=== PATIENT | female | born 1975 | race Caucasian/White ===

== ENCOUNTER 2025-02-04 06:27 | Outpatient (OUT) | payer BC, SELFPAY ==
[2025-02-04 06:49] LABS: Basophils Absolute Auto 0.1 10^3/uL (0.0-0.1); Basophils Percent Auto 0.9 % (0.2-2.0); Eosinophils Absolute Auto 0.1 10^3/uL (0.0-0.7); Eosinophils Percent Auto 0.8 % (0.9-7.0); Hemoglobin 14.6 g/dL (12.0-16.0); Immature Granulocytes Abs Auto 0.02 10^3/uL (0.00-0.03); Immature Granulocytes Pct Auto 0.3 % (0.0-0.5); Lymphocytes Absolute Auto 2.8 10^3/uL (1.2-3.8); Lymphocytes Percent Auto 36.9 % (20.5-60.0); Mean Corpuscular Hemoglobin 30.2 pg (26.7-34.0); Mean Corpuscular Volume 88.8 fL (81.0-99.0); Mean Platelet Volume 10.5 fL (9.5-13.5); Monocytes Absolute Auto 0.6 10^3/uL (0.3-0.8); Monocytes Percent Auto 7.5 % (1.7-12.0); Neutrophils Percent Auto 53.6 % (43.0-75.0); Platelet Count 213 10^3/uL (150-450); Red Blood Count 4.84 10^6/uL (4.20-5.40); Red Cell Distribution Width 11.9 % (11.0-15.0); White Blood Count 7.5 10^3/uL (4.0-11.0)
[2025-02-04 07:19] LABS: Alanine Aminotransferase 20 U/L (14-59); Albumin Globulin Ratio 1.4; Albumin Level 4.2 g/dL (3.4-5.0); Alkaline Phosphatase 110 U/L (46-116); Anion Gap 15.5; Aspartate Amino Transferase 10 U/L (15-37); BUN Creatinine Ratio 28.8; Bilirubin Total 0.6 mg/dL (0.2-1.0); Chloride 95 mmol/L (98-107); Chol HDL Ratio 6.5; Cholesterol 221 mg/dL (<=200); Estimated GFR (African America >60 (>=60 mL/min/1.73m^2); Estimated GFR (Non-African Ame >60 (>=60 mL/min/1.73m^2); Globulin 3.1 g/dL; Glucose 311 mg/dL (74-106); HDL Cholesterol 34 mg/dL (40-60); Potassium 3.5 mmol/L (3.5-5.1); Sodium 134 mmol/L (136-145); Total Protein 7.3 g/dL (6.4-8.2); Triglycerides 310 mg/dL (<=150)
== END 2025-02-04 06:28 | disposition home or self-care (01) ==
LOC: LAB 06:31
PROVIDERS: PCP Family Medicine; Visit Provider Family Medicine
DX: R53.82 Chronic fatigue, unspecified (principal); Z13.220 Encounter for screening for lipoid disorders; R63.4 Abnormal weight loss; G47.00 Insomnia, unspecified; R53.83 Other fatigue
CPT/HCPCS: 36415; 80053; 80061; 84443; 85025

== ENCOUNTER 2025-07-28 06:32 | Outpatient (OUT) | payer BC, SELFPAY ==
--- OUTSIDE RECORDS SUMMARY | 2025-07-27 03:45 | XMS_ITS ---
Author Organization [facility] [place] Address [address] [place] [address] Care Team Providers Care Manager Room Name Role Phone ArleneLoree okeefe Primary Care Provider [phone] Tristan Montenegro Unavailable [phone] Allergies No Known Allergies Results Component Value Reference Range Notes GLUCOSE - IN OFFICE (Not yet reviewed by provider) Interpretation: Performing Lab: Notes/Report: Glucose 379 74 - 106 MG/DL Reason For Referral Diagnosis 1 Diabetes (E11.9) Referral Organization [facility] Referring Provider First Name Tristan Referring Provider Last Name Lan Referring Provider [facility] Provider Ken Bo Referred Provider Specialty Endocrinolog y Referral Priority Routine REASON FOR VISIT sick, sore throat, patient states feels like has marble in throat , Started Friday, worsening last night, Was seeing a different PCP in [place], Dr Jimmie Naqvi- was told Diabetic but not on any meds- patient said weight loss and muscle tone, Would like to see Dr Bo- glucose done today in office Medications Medication SIG (Take, Route, Frequency, Duration) Notes Start Date End Date Status Amoxicillin-Pot Clavulanate 875-125 MG 1 tablet Orally every 12 hrs; Duration: 10 days 5ActiveGlimepiride 2 MG1 tablet with breakfast or the first main meal of the day Orally Once a day; Duration: 30 days5ActivemetFORMIN HCl 500 MG1 tablet with a meal Orally bid; Duration: 30 days5Active Social History Tobacco Use: Social History Observation Description Date Details (start date - stop date) Former Smoker 07/25/1994 - 07/29/2013 Tobacco Control (Standard) Question Answer Notes Tobacco use: Former smoker When did you start smoking?07/25/1994When did you stop smoking?07/29/2013 Additional Findings: Tobacco iba-xkptDn-azlowqjl cigarette smoker (10-19/day) AUDIT-C (Standard) Question Answer Notes Did you have a drink containing alcohol in the p ast year? Yes How often did you have a drink containing alcohol in the past year?2 to 4 times a month (2 points)How many drinks did you have on a typical day when you were drinking in the past year?3 or 4 drinks (1 point)How often did you have six or more drinks on one occasion in the past year?Less than monthly (1 point)Points4 InterpretationPositive Problems Problem Type SNOMED Code ICD Code Onset Dates Problem Status W/U Status Risk Notes Problem Type II diabetes mellitus withou t complication (004943188) Diabetes (E11.9) Activeconfirmed Vital Signs Weight 132.2 lbs 07/27/2025 Height 66 in 07/27/2025 Blood pressure systolic 122 mm Hg 07/27/20 25 Blood pressure diastolic 94 mm Hg 025 Temperature 98.5 degrees Fahrenheit 07/27/20 25 BMI 21.34 kg/m2 07/27/2025 Encounters Encounter Location Date Provider Diagnosis [facility] [address] [place] [address] 07/27/2025 Tristan Hoy Muscle weakness M62. 81 ; Acute non-recurrent sinusitis, unspecified location J01.90 ; Nasal congestion R09.81 and Diabetes E11.9 Assessments Encounter Date Diagnosis (ICD Code) Assessment Notes Treatment Notes Treatment Clinical Notes Section Notes 07/27/2025 Muscle weakness (ICD-10 - M62.81 ) 07/27/2025ute non-recurrent sinusitis, unspecified location (ICD-10 - J01.90) Rest and drink more liquids, especially water. You may use a humidifier or vaporizer to help keep the drainage moist. Xnhd-bef-qobfsbx Nasal Saline may help the stuffy and runny nose. Use Ibuprofen and or Tylenol as needed for fever, chills, body aches or pain. Children 5 years old should not be given kgfe-zng-qxifwut cough and cold medications such as guaifenesin and dextromethorphan. If you're over age 5, you may try xzlp-npu-eqssrag cold medications such as guaifenesin and dextromethorphan, or multi-symptom cold reliever such as Dayquil to help reduce the symptoms. Antibiotics have been pre scribed. You should take these until completed and follow the directions. Antibiotics can sometimescause upset stomach, and in rare cases, serious allergic reactions or serious gastrointestinal problems. If you start having severe abdominal pain, severe vomiting, or bloody diarrhea, you should be r eevaluated by your physician or urgent care immediately. Follow up with your Primary Care Provider or return to clinic if symptoms do not improve within 3-5 days07/27/2025Nasal congestion (ICD-10 - R09.81)07/27/2025Diabetes (ICD-10 - E11.9) Plan Of Treatment Medication Medication Name Sig Start Date Stop Date Notes Amoxicillin-Pot Clavulanate 875-125 MG 1 tablet Orally every 12 hrs; Duration: 10 days 07/27/2025 Glimepiride 2 MG1 tablet with breakfast or the first main meal of the day Orally Once a day; Duration: 30 days07/27/2025metFORMIN HCl 500 MG1 tablet with a meal Orally bid; Duration: 30 days07/27/2025Treatment Notes Assessment Notes Acute non-recurrent sinusiti s, unspecified location Rest and drink more liquids, especially water. You may use a humidifier or vaporizer to help keep the drainage moist. Bvob-asf-yglcrzg Nasal Saline may help the stuffy and runny nose. Use Ibuprofen and or Tylenol as needed for fever, chills, body aches or pain. Children 5 years old should not be given rrcy-bvx-nllqtud cough and cold medications such as guaifenesin and dextromethorphan. If you're over age 5, you may try uvpk-glw-qtdpflx cold medications such as guaifenesin and dextromethorphan, or multi-symptom cold reliever such as Dayquil to help reduce the symptoms. Antibiotics have been prescribed. You should take these until completed and follow the directions. Antibiotics can sometimes cause upset stomach, and in rare cases, serious allergic reactions or serious gastrointestinal problems. If you start having severe abdominal pain, severe vomiting, or bloody diarrhea, you should be reevaluated by your physician or urgent care immediately. Follow up with your Primary Care Provider or return to clinic if symptoms do not improve within 3-5 days Pending Test Test Name Order Date GLUCOSE - IN OFFICE 07/27/2025 HEMOGLOBIN A1C (GLYCO) 07/27/2025 IRON, TOTAL 07/27/2025 LIPID PANEL (CHOL/TRIG/HDL/LDL) 07/27/20 25 C PEPTIDE 07/27/2025 Insulin Level 07/27/2025 THYROID PANEL (T4/TSH/FREE T3) 5 CMP (COMP MET SEGURA) w/eGFR CKD-EPI 2024 CBC WITH DIFF 07/27/2025 Referrals Referral Date Details 07/27/2025 07/27/2025, Ken Foster bbagh Next Appt Details Follow Up: 3-5 days if not i mproving, Reason: Progress Notes * Nancy CHRISTIANSON LDOB: [birth year] (49 yo F)Acc No.[id number]:07/27/2025 UNLOCKED PROGRESS NOTE Progress Note Patient: Nancy REYNA :?Sohan Montenegro ([facility]), MDDOB:1975???Age: 49 Y???Sex:FemaleDate:07/27/2025Phone:[phone]:[address] [place], [place] [id number]:Loree Queen In:08:43 AM ESTCheck Out:09:40 AM EST Subjective: * Chief Complaints: * 1 . Sick, sore throat, patient states feels like has marble in throat . 2. Started Friday, worsening last night. 3. Was seeing a different PCP in [place], Dr Jimmie Naqvi- was told Diabetic but not on any meds- patient said weight loss and muscle tone. 4. Would like to see Dr Bo- glucose done today in office. * HPI: ???Depression Screening:?PHQ-2 (2015 Edition)?Little interest or pleasure in doing things? Not at all ?Feeling down, depressed, or hopeless??Not at all ?Total Score?0 ? Dx with diabets - not treated -? Also with sinusitis symptosm. ???Sinusitis:? The patient complains of symptoms of sinus infection. The symptoms have been present for 1-2 days. The symptoms are moderate. Symptomatic treatment has included OTC medication. Associated symptoms include headache, facial pain, runny nose, nasal congestion. * ROS: ???Skin:?Rash?denies.?ENT:?Comments?See HPI for details.?Cardiovascular:?Edema?denies.?Palpitations?denies.?Respiratory:?Chest pain?denies.?Cough?denies.?Wheezing denies.?Gastrointestinal:?Abdominal pain?denies.?Nausea?denies.?Vomiting?denies.? * Medical History: M edical History Verified. * Surgical History: D enies Past Surgical History. * Hospitalization/Major Diagno stic Procedure: D enies Past Hospitalization. * Family History: F ather: . M other: , Hypoglycemia, diagnosed with Diabetes. S on(s): alive. 2 son(s) . . * Social History: ???Tobacco Use:?Tobacco Control (Standard)?Tobacco use:?Former smoker ?When did you start smoking??07/25/1994 ?When did you stop smoking??07/29/2013 ?Additional Findings: Tobacco non-user?Ex-moderate cigarette smoker (10-19/day) ???Drug/Alcohol:?AUDIT-C (Standard)?Did you have a drink containing alcohol in the past year??Yes ?How often did you have a drink containing alcohol in the past year??2 to 4 times a month (2 points) ?How many drinks did you have on a typical daywhen you were drinking in the past year??3 or 4 drinks (1 point) ?How often did you have six or more drinks on one occasion in the past year??Less than monthly (1 point) ?Points?4 ?Interpretation?Positive * Medications: N one * Allergies: N .K.D.A. Objective: * Vitals: W t:132.2lbs, Ht: 66 in, BP:122/94mm Hg, Temp:98.5F, BMI:21.34Index, Ht-cm: 167.64 cm, Wt-k.97 kg. * Examination: ???General Examination: ?GENERAL APPEARANCE:? in no acute distress, well developed,well nourished.?ENT:? ear and nose external appearance normal, tympanic membranes clear bilaterally, facial tenderness to palpation over sinuses.?EYES:? pupils equal, round, reactive to light and accomodations.?ORAL CAVITY:? mucosa moist.?NECK:?neck supple, full range of motion, no cervical lymphadenopathy.?LUNGS:?clear to auscultation bilaterally.?CARDIO:? no murmurs, regular rate and rhythm, S1, S2 normal.?ABDOMEN:? soft, nontender , not distended, bowel sounds are active.?SKIN:? no suspicious lesions, warm and dry.?EXTREMITIES:? no clubbing, cyanosis, or edema.?NEUROLOGIC:? nonfocal, motor strength of upper/lower extremities intact , sensory exam intact.? Assessment: * Assessment: 1.?Muscle weakness - M62.81 (Primary)???2.?Acute non-recurrent sinusitis, u nspecified location - J01.90???3.?Diabetes - E11.9???4.?Nasal congestion - R09.81??? Plan: * Treatment: Start Amoxicillin-Pot Clavulanate Tablet, 875-125 MG, 1 tablet, Orally, every 12 hrs, 10 days, 20 Tablet, Refills 0;?Start metFORMIN HCl Tablet, 500 MG, 1 tablet with a meal, Orally, bid, 30 days, 60 Tablet, Refills 11;?Start Glimepiride Tablet, 2 MG, 1 tablet with breakfast or the first main meal of the day, Orally, Once a day, 30 days, 30, Refills 11.?LAB: C PEPTIDE ?LAB: GLUCOSE - IN OFFICE (Collection Date & Time - 07/27/2025)2.?Acute non- recurrent sinusitis, unspecified location? Notes:Rest and drink more liquids, especially water. You may use a humidifier or vaporizer to help keep the drainage moist. Uboi-ajm-txnnpva Nasal Saline may help the stuffy and runny nose. Use Ibuprofen and or Tylenol as needed for fever, chills, body aches or pain. Children 5 years old should notbe given rhcd-lrf-dupvbbz cough and cold medications such as guaifenesin and dextromethorphan. If you're over age 5, you may try maaq-oit-qvdmreq cold medications such as guaifenesin and dextromethorphan, or multi-symptom cold reliever such as Dayquil to help reduce the symptoms. Antibiotics have been prescribed. You should take these until completed and follow the directions. Antibiotics can sometimes cause upset stomach, and in rare cases, serious allergic reactions or serious gastrointestinal problems. If you start having severe abdominal pain, severe vomiting, or bloody diarrhea, you should be reevaluated by your physician or urgent care immediately. Follow up with your Primary Care Provider or return to clinic if symptoms do not improve within 3-5 days??3.?Diabetes?LAB: HEMOGLOBIN A1C (GLYCO) ?LAB: IRON, TOTAL ?LAB: LIPID PANEL (CHOL/TRIG/HDL/LDL) ?LAB: Insulin Level ?LAB: THYROID PANEL (T4/TSH/FREE T3) ?LAB: CMP (COMP MET SEGURA) w/eGFR CKD-EPI ?LAB: CBC WITH DIFF? Referral To:Ken Bo??Endocrinology ?Reason: * Labs: * L ab: GLUCOSE - IN OFFICE (Collection Date & Time - 07/27/2025) ?ValueReference Range?Gcczlhf88314 - 106 MG/DL * Procedure Codes: 8 2948 GLUCOSE;BLOOD,REGNT.STRIP * Follow Up: 3 -5 days if not improving * * Electronic signature of Tristan Montenegro MD, [id number] on 07/28/2025 at 06:37 AM EST Sign off status: PendingVisit Status:?CHK (Check Out) * Provider: Thais Montenegro ([facility])MD Date: 1 09/27/2024 Generated for Printing/Faxing/eTransmitting on:?07/28/2025 06:37 AM EST History and Physical Notes * HPI (History of Present Illness) CategorySub-CategoryDetailNotesCategory NotesDepression ScreeningPHQ-2 (2015 Edition)Little interest or pleasure in doing things?: Not at all Dx with diabets - not treated - Also with sinusitis symptosm Feeling down, depressed, or hopeless?: Not at allTotal Score: 0 Examination CategorySub-CategoryDetailNotesCategory NotesGeneral ExaminationGENERAL APPEARANCE:in no acute distress, well developed, well nourishedENT:ear and nose external appearance normal, tympanic membranes clear bilaterally, facial tenderness topalpation over sinusesEYES:pupils equal, round, reactive to light and accomodationsNECK:neck supple, full range of motion, no cervical lymphadenopathyCARDIO:no murmurs, regular rate and rhythm, S1, S2 normalLUNGS: clear to auscultation bilaterallyABDOMEN:soft, nontender , not distended, bowel sounds are activeNEUROLOGIC:nonfocal, motor strength of upper/lower extremities intact , sensory exam intactSKIN:no suspicious lesions, warm and dryEXTREMITIES: no clubbing, cyanosis, or edemaORAL CAVITY:mucosa moist Consultation Request Notes Referral Date Referring Provider Referred Provider Not es 07/27/2025 Tristan Montenegro Ahmad
--- OUTSIDE RECORDS SUMMARY | 2025-07-28 06:37 | XMS_ITS | Clinical Summary ---
Author Organization [facility] Address [address] [place] [address] Care Team Providers Care Movement Therapist Name Role Phone Sohan Montenegro MD Primary Care Provider [phone] Allergies No known active allergies Medications * This document contains information received from the source organization and may not represent a complete record from that organization. MedicationSigDispense QuantityRefillsLast FilledStart DateEnd DateStatus gabapentin (NEURONTIN) 800 mg tablet Take 800 mg by mouth every evening.Active gabapentin (NEURONTIN) 100 mg capsule Take 100 mg by mouth every evening.Active venlafaxine XR (EFFEXOR XR) 150 mg 24 hr capsule Take 1 capsule by mouth once daily. 30 capsule Active tamoxifen (NOLVADEX) 20 mg tablet Take 1 tablet by mouth once daily. 30 tablet Active cyclobenzaprine (FLEXERIL) 10 mg tablet TAKE 1 TABLET BY MOUTH EVERY 8 HOURS NEEDED FOR MUSCLE SPASM 90 tablet Active sertraline (ZOLOFT) 50 mg tablet Take 50 mg by mouth once daily. Active QUEtiapine (SEROQUEL) 100 mg tablet Take 100 mg by mouth daily at bedtime.Active Active Problems ProblemNoted DateDiagnosed DateBreast erfwfv0405/27/2014Invasive lobular carcinoma of breast, stage Malignant neoplasm of breast (female) Immunizations ImmunizationAdministration DatesNext Dueinfluenza (IIV4) vaccine, age 6 mo - 64 yr, quadrivalent, PF (AFLURIA, FLUARIX, FLULAVAL, FLUZONE)06/07/2014 Family History Medical HistoryRelationCommentsBreast CancerMaternal GrandmotherBreast Cancer Paternal AuntRelationStatusCommentsMaternal GrandmotherPaternal Aunt Social History Tobacco UseTypesPacks/DayYears UsedDateSmoking Tobacco: FormerCigarettes Smokeless Tobacco: FormerQuit: 12/04/2012 Comments:quite 14 months ago Alcohol UseStandard Drinks/WeekCommentsYes0 (1 standard drink = 0.6 oz pure alcohol)occ-6 glasses a weekArea Deprivation IndexAnswerDate RecordedNational Score (1-100), lower number is lower riskNot on file01/05/2021tate Score (1- 10), lower number is lower riskNot on 01/05/2021ata from: https://www.neighborhoodatlas.medicine.[facility].edu/. Last address used for calculationNot on file01/05/2021CommentsNoSex and Gender Information ValueDate RecordedSex Assigned at BirthNot on fileLegal PyeZsscmu50/23/2014 4:25 PM EDTGender IdentityNot on fileSexual OrientationNot on file Last Filed Vital Signs Vital SignReadingTime TakenCommentsBlood Iwfxejvx555/7401/05/2021 11:22 AM EDT Cmdnq270501/05/2021 11:22 AM LQVPggfrebzguf42.2 ??C (97.1 ??F)01/05/2021 11:22 AM EDTRespiratory Enks873001/05/2021 11:22 AM EDTOxygen Dxllgaizub35%01/05/2021 11:22 AM EDTInhaled Oxygen Concentration--Ecejsc76.2 kg (132 lb 12.8 oz)01/05/2021 11:22 AM HFXEmowui088.6 cm (5' 5.98 )01/05/2021 11:22 AM EDTBody Mass Index21.44 01/05/2021 11:22 AM EDT Plan of Treatment Health MaintenanceDue DateLast DoneCommentsAnxiety Vnmyuryqt98/20/1994Depression Nrlxrwufc82/20/1994HIV Diibaneyr39/20/1994Hepatitis C Rgcqdxxeu86/20/1994 DTaP,Tdap,Td Vaccine (1 - Tdap)1994Hepatitis B Vaccine (1 of 3 - 19+ 3- dose series)1994Cervical Cancer Bzpfsbuah34/20/1997Mammogram Screening 2015CT Lzloxpqcyrjk52/20/2021Cologuard (FIT-DNA)1Colonoscopy 1Colorectal Cancer Ieukwjsjn20/20/2021Fecal Occult Blood1Lipid Icpxrgkbg87/20/4411Eqxvbbecmfzqd45/20/2021Diabetes Ajvoehncv94/14/2024 01/05/2021, 03/16/2015, 06/06/2014, Additional history existsCovid-19 Vaccine ( season)2025Influenza Vaccine (#1) Medical Devices ImplantedTypeAreaManufacturerDevice [facility] Expiration DateModel / Serial / LotGraft Skn 16x8cm Alloderm Thk - [id number] [facility] BreastLIFECELL 11/30/[id number] / / [id number]:Allo Derm Ready to use ThickGraft Skn 16x8cm Alloderm Thk - [id number] Implanted:Qty[facility] 1 [facility] BreastLIFECELL 12/01/[id number] / / [id number]:Allo Derm ready to use ThickExp Tiss 550ml Styl 9200 Txt M - [id number] Im[facility]: Breast [employer] [id number] / [id number] / [id number] TXT MExp Tiss 550ml Styl 9200 Txt M - [id number] Implanted:Qty: 1 [facility]02/2014 [facility] BreastLeft: Breast [employer] [id number] / [id number] / [id number]:EXP TISS 550ML SSTYL 9200 TXT MExp Tiss 550ml Styl 9200 Txt M - [id number] Implanted:Q[facility]: Breast [employer]/[id number] / [id number] / [id number]:Cassoday cpx 550 breast tissue weather observer 150 cc injectable saline added at intraopImp Brst 14.5x13.6 Cm 685ml Mh - [id number] Implant[facility]:Q[facility]: Breast [employer]07/30/[id number] / / [id number] BREAST IMPLANTImp Brst 14.5x13.6 Cm 685ml Mh - [id number] Implanted:Q[facility]Right: Breast [employer]/11/[id number] / / [id number] BREAST IMPLANT Procedures Procedure NamePriorityDate/TimeAssociated DiagnosisCommentsCOMPREHENSIVE METABOLIC FVWWFRfmssig06/14/2021 11:51 AM EDT Cancer of breast, intraductal, left from Last 3 Months or Most Recently Relevant to Health Maintenance Results * (ABNORMAL) COMP METABOLIC PANEL (01/05/2021 11:51 AM EDT)ComponentValueRef RangeTest MethodAnalysis TimePerformed AtPathologist SignatureProtein, Total 7.56.3 - 8.0 g/dL01/05/2021 12:51 PM EDTCFire[facility] Cancer CareAlbumin5.1(H)3.9 - 4.9 g/dL01/05/2021 12:51 PM EDTCFirelands [facility] Cancer CareCalcium9.58.5 - 10.2 mg/dL01/05/2021 12:51 PM EDTCFirelands [facility] Cancer CareBilirubin, Total<0.2(L)0.2 - 1.3 mg/dL01/05/2021 12:51 PM EDTCFirelands [facility] Center Cancer CareAlkaline Lbtygaxvlce9454 - 123 U/L01/05/2021 12:51 PM EDTCFirelands [facility] Center Cancer XayzXMD4853 - 35 U/L01/05/2021 12:51 PM [facility] Cancer CareGlucose 8874 - 99 mg/dL01/05/2021 12:51 PM [facility] Comment: The [place] Diabetes Association (ADA) provides guidance for cutoff values for fasting glucose and random glucose. The ADA defines fasting as no caloric intake for at least 8 hours. Fasting plasma glucose results between 100 to 125 mg/dL indicate increased risk for diabetes (prediabetes). Fasting plasma glucose results greater than or equal to 126 mg/dL meet the criteria for diagnosis of diabetes. In the absence of unequivocal hyperglycemia, results should be confirmed by repeat testing. In a patient with classic symptoms of hyperglycemia or hyperglycemic crisis, random plasma glucose results greater than or equal to 200 mg/dL meet the criteria for diagnosis of diabetes. Reference: Standards of Medical Care in Diabetes 2016, [place] Diabetes Association. Diabetes Care. 2016.39(Suppl 1). VTU102 - 21 mg/dL01/05/2021 12:51 PM [facility] Creatinine0.610.58 - 0.96 mg/dL01/05/2021 12:51 PM [facility] YnqaEfxnek111686 - 144 mmol/L01/05/2021 12:51 PM [facility] Cancer CarePotassium4.03.7 - 5.1 mmol/L01/05/2021 12:51 PM [facility] FxweUdcjehbz407(H)97 - 105 mmol/L 01/05/2021 12:51 PM [facility] CkxiPI10765 - 30 mmol/L01/05/2021 12:51 PM [facility] Cancer CareAnion Gap12 9 - 18 mmol/L01/05/2021 12:51 PM [facility] Cancer CareALT 117 - 38 U/L01/05/2021 12:51 PM [facility] Cancer CareeGFR- >6005 12:51 PM [facility] Cancer CareeGFR-All Other Races>60.01/05/2021 12:51 PM [facility] Cancer CareComment: eGFR (Estimated GFR) Units of measure: mL/min/1.73 meters squared eGFR is derived from the reexpressed MDRD Study equation using the following parameters: serum creatinine, age, gender and race. The creatinine assay has been calibrated to be traceable to IDMS. An eGFR <60 mL/min/1.73m2 for >3 months is consistent with chronic kidney disease. Refer to KDOQI guidelines for clinical interpretation. In patients with unstable renal function, e.g. those with acute kidney injury, the eGFR may not accurately reflect actual GFR. Specimen (Source)Anatomical Location / LateralityCollection Method / Volume Collection TimeReceived TimeBloodBLOOD SPECIMEN / Kwfnoob9101/05/2021 11:51 AM EDT 01/05/2021 11:56 AM EDT Narrative Authorizing ProviderResult TypeResult StatusVivek Adrian SALEEMLABORATORYFinal ResultPerforming OrganizationAddressCity/State/ZIP CodePhone Number [address] [address] [facility] [address] [place] [address] from Last 3 Months or Most Recently Relevant to Health Maintenance Insurance Care Teams Team MemberRelationshipSpecialtyStart DateEnd Date Sohan Montenegro MD PCP - GeneralFamily Medicine01/05/21
--- OUTSIDE RECORDS SUMMARY | 2025-07-28 06:37 | XMS_ITS | Clinical Summary ---
Author Organization [facility] Healthcare Address [address] [place] [address] Care Team Providers Care Ash Worker Name Role Phone Jimmie Naqvi MD Primary Care Provider Jimmie Naqvi MD Unavailable [phone] Allergies No known active allergies Medications MedicationSigDispense QuantityRefillsLast FilledStart DateEnd DateStatus QUEtiapine (SEROquel) 100 MG tablet Take 100 mg by mouth at bedtimeActive Glucose Blood (Blood Glucose Test Strips 333) strip Indications:Type 2 diabetes mellitus with hyperglycemia, without long-term current use of insulin (HCC)1 each by In Vitro route in the morning and 1 each before bedtime. 100 strip 5Active Lancets 30G [facility] Indications:Type 2 diabetes mellitus with hyperglycemia, without long-term current use of insulin (HCC)1 each in the morning and 1 each before bedtime. 100 each 5Active glimepiride (Amaryl) 1 MG tablet Indications:Type 2 diabetes mellitus with hyperglycemia, without long-term current use of insulin (HCC)Take 1 tablet (1 mg) by mouth in the morning and 1 tablet (1 mg) before bedtime.507/6Active sertraline (Zoloft) 50 MG tablet Indications:Anxiety1/2 tab po daily x 7 days, then 1 tab po daily 30 tablet 5Active Active Problems No known active problems Family History Medical HistoryRelationNameCommentsDiabetesMaternal GrandfatherHeart attack Maternal GrandfatherHeart diseaseMaternal GrandfatherDiabetesMaternal GrandmotherhypoglycemicMotherRelationNameStatusCommentsMaternal Grandfather DeceasedMaternal GrandmotherDeceasedMotherDeceased Social History Tobacco UseTypesPacks/DayYears UsedDateSmoking Tobacco: FormerCigarettesQuit: 2013Smokeless Tobacco: Never Tobacco Cessation:Counseling Given: Not Answered Alcohol UseStandard Drinks/WeekCommentsNot Currently0 (1 standard drink = 0.6 oz pure alcohol)CommentsNoSex and Gender InformationValueDate RecordedSex Assigned at BirthNot on fileLegal ZjgMvbhvy85/15/2023 7:32 PM EDTGender Identity Not on fileSexual OrientationNot on file Last Filed Vital Signs Vital SignReadingTime TakenCommentsBlood Frwbnvso745/8407 3:55 PM EDT Vexyq647102/11/2025 1:55 PM ZPOOeoeljbbmso96.7 ??C (98 ??F)03/01/2025 3:55 PM EDT Respiratory Rate--Oxygen Gepatdzmge47%02/11/2025 1:55 PM EDTInhaled Oxygen Concentration--Xnyzkn62 kg (145 lb 9.6 oz)03/01/2025 3:55 PM BNTIdxdhx636.6 cm (5' 6 )02/11/2025 1:55 PM EDTBody Mass Index23. 1:55 PM EDT Plan of Treatment Health MaintenanceDue DateLast DoneCommentsCT Nkrhvbfynrjp81/20/1976Colonoscopy 1975Colorectal Cancer Wqevsvjuu80/20/1976Diabetes: Hemoglobin A1C 1975FIT-DNA1975FIT1975FOBT1975 2582Rirgrsfllqhlz41/20/1976 Diabetes: Retinopathy Jctwaojxl51/20/1986Diabetes: Urine Protein Screening 1994Pneumococcal Vaccine: Pediatrics (0 to 5 Years) and At-Risk Patients (6 to 64 Years) (1 of 2 - PCV)1994COVID-19 Vaccine (3 - season) /06/2021, 01/05/2021Influenza Vaccine (#1) KfayrarvxWqijmacljpeq95/24/2014, 03/17/2014 Insurance Care Teams Team MemberRelationshipSpecialtyStart DateEnd Date Jimmie Naqvi MD [address] [place] [address] [facility] - [facility]25 Jimmie Naqvi MD [address] [place] [address] PCP - Miguel Ornelas03/25/25
--- OUTSIDE RECORDS SUMMARY | 2025-07-28 06:37 | XMS_ITS | Patient Health Record ---
Author Organization [facility] [place] Address [address] [place] [address] Care Team Providers Care Neon Technician Name Role Phone Loree Jacobs Primary Care Provider Tristan Montenegro Unavailable [phone] Allergies No Known Allergies Results Component Value Reference Range Notes GLUCOSE - IN OFFICE (Not yet reviewed by provider) Interpretation: Performing Lab: Notes/Report: Glucose 379 74 - 106 MG/DL Reason For Referral Diagnosis 1 Diabetes (E11.9) Referral Organization [facility] Medicine Referring Provider First Name Tristan Referring Provider Last Name Lan Referring Provider [facility] Referred Provider Ken Bo Referred Provider Specialty Endocrinolog y Referral Priority Routine Medications Medication SIG (Take, Route, Frequency, Duration) [...] did you stop smoking?07/29/2013 Additional Findings: Tobacco hvs-sjnaAh-jtxphvui cigarette smoker (10-19/day) AUDIT-C (Standard) Question Answer [...] Type II diabetes mellitus withou t complication ([id number]) Diabetes (E11.9) Activeconfirmed Vital Signs Temperature 98.5 degrees Fahrenheit 07/27/2025 Blood pressure brnvosish25 mm Hg07/27/20252145Gpbfbh16 in07/27/2025lood pressure kekjolip308 mm Hg07/27/20256575Ytumjm127.2 lbs109/27/2024BMI21.34 kg/m207/27/2025 Encounters Encounter Location Date Provider Diagnosis [facility] [address] [place] [address] 07/27/2025 Tristan Hoy Muscle weakness M62. 81 ; Acute non-recurrent sinusitis, unspecified location J01.90 ; Nasal congestion R09.81 and Diabetes E11.9 Assessments Encounter Date Diagnosis (ICD Code) Assessment Notes Treatment Notes Treatment Clinical Notes Section Notes 07/27/2025 Muscle weakness (ICD-10 - M62.81 ) 5Acute non-recurrent sinusitis, unspecified location (ICD-10 - J01.90) Rest and drink more liquids, especially water. You may use a humidifier or vaporizer to help keep the drainage moist. Lbzq-lag-ncuqypq Nasal Saline may help the stuffy and runny nose. Use Ibuprofen and or Tylenol as needed for fever, chills, body aches or pain. Children 5 years old should not be given wynh-yye-mvyewjq cough and cold medications such as guaifenesin and dextromethorphan. If you're over age 5, you may try hcyr-cvg-thvpxul cold medications such as guaifenesin and dextromethorphan, [...] R09.81)07/27/2025Diabetes (ICD-10 - E11.9) Plan Of Treatment Pending Test Test Name Order Date GLUCOSE - IN OFFICE 07/27/2025 HEMOGLOBIN A1C (GLYCO) 07/27/2025 IRON, TOTAL 07/27/2025 LIPID PANEL (CHOL/TRIG/HDL/LDL) 07/27/20 25 C PEPTIDE 07/27/2025 Insulin Level 07/27/2025 THYROID PANEL (T4/TSH/FREE T3) 5 CMP (COMP MET SEGURA) w/eGFR CKD-EPI 2024 CBC WITH DIFF 07/27/2025 Insurance Providers Payer Name Payer Address Payer Phone Subscriber Number Group Number Insured Name Patient Relationship to Insured Coverage Start Date Coverage End Date [employer] [address] [place] [address] [id number] Sarath Christianson - patient is the insured
[2025-07-28 07:00] LABS: Hematocrit 45.3 % (36.0-48.0); Hemoglobin 14.8 g/dL (12.0-16.0); Immature Granulocytes Abs Auto 0.01 10^3/uL (0.00-0.03); Immature Granulocytes Pct Auto 0.2 % (0.0-0.5); Lymphocytes Absolute Auto 1.3 10^3/uL (1.2-3.8); Mean Corpuscular HGB Conc 32.7 g/dL (29.9-35.2); Mean Corpuscular Hemoglobin 30.5 pg (26.7-34.0); Mean Corpuscular Volume 93.4 fL (81.0-99.0); Platelet Count 181 10^3/uL (150-450); Red Blood Count 4.85 10^6/uL (4.20-5.40); White Blood Count 6.4 10^3/uL (4.0-11.0)
[2025-07-28 07:35] LABS: Alanine Aminotransferase 19 U/L (14-59); Albumin Globulin Ratio 1.1; Albumin Level 3.9 g/dL (3.4-5.0); Alkaline Phosphatase 84 U/L (46-116); Anion Gap 16.5; Aspartate Amino Transferase 7 U/L (15-37); Blood Urea Nitrogen 10.0 mg/dL (7.0-18.0); Calcium 9.1 mg/dL (8.5-10.1); Carbon Dioxide 25.4 mmol/L (21.0-32.0); Chloride 97 mmol/L (98-107); Cholesterol 208 mg/dL (<=200); Estimated GFR (African America >60 (>=60 mL/min/1.73m^2); Estimated GFR (Non-African Ame >60 (>=60 mL/min/1.73m^2); Free T3 2.28 pg/mL (2.18-3.98); Globulin 3.7 g/dL; Glucose 293 mg/dL (74-106); HDL Cholesterol 38 mg/dL (40-60); Potassium 3.9 mmol/L (3.5-5.1); Sodium 135 mmol/L (136-145); Thyroid Stimulating Hormone 1.697 uIU/mL (0.358-3.740); Total Protein 7.6 g/dL (6.4-8.2); Triglycerides 114 mg/dL (<=150); VLDL CHOLESTEROL 22.8 mg/dL
[2025-07-28 09:05] LABS: Iron 40.0 ug/dL (50.0-170.0)
== END 2025-07-28 06:33 | disposition home or self-care (01) ==
LOC: LAB 06:34
PROVIDERS: PCP Family Medicine; Visit Provider Family Medicine
DX: D64.9 Anemia, unspecified (principal); E11.9 Type 2 diabetes mellitus without complications
CPT/HCPCS: 36415; 80053; 80061; 83036; 83525; 83540; 84436; 84443; 84481; 84681; 85025